=== PATIENT | male | born 1975 | race Caucasian/White ===

== ENCOUNTER 2016-04-08 12:21 | Emergency (ER) | payer OTHER ==
[2016-04-08] MEDS ORDERED: KETOROLAC 60 MG/2 ML VIAL IM STA (12:42)
[2016-04-08] MEDS ORDERED: HYDROmorphone 1 MG/ML 1 ML SYRINGE IM STA (12:42)
--- NOTE | 2016-04-08 12:50 | ED ---
General Adult HPI - General Chief complaint: Extremity Injury, Upper Stated complaint: Shoulder Injury Time Seen by Provider: 04/08/16 12:30 Source: patient, RN notes reviewed Mode of arrival: ambulatory Limitations: no limitations - History of Present Illness Initial comments: This is a 41-year-old male who presents to the emergency department complaining of left shoulder pain. Patient states he fell and injured his left shoulder this morning. Patient denies any numbness weakness. Patient denies any injury to his neck or head. Patient denies any other injury at this time. Patient states he fell with his shoulder extended all and then landed on the shoulder as well. Patient denies any elbow pain or wrist pain. - Related Data Home Medications Medication Instructions Recorded Confirmed Dextroamphetamine/Amphetamine 04/08/16 [Adderall Xr] Morphine Sulfate ER [Ms Contin 30 mg PO Q12HR 04/08/16 04/08/16 30Mg] Morphine Sulfate [Morphine Sulfate 60 mg PO 04/08/16 ER] Allergies Allergy/AdvReac Type Severity Reaction Status Date / Time iodine Allergy Rash/Hives Verified 04/08/16 14:10 Review of Systems ROS Statement: Those systems with pertinent positive or pertinent negative responses have been documented in the HPI. ROS Other: All systems not noted in ROS Statement are negative. Past Medical History Additional Past Medical History / Comment(s): back pain History of Any Multi-Drug Resistant Organisms: None Reported Past Surgical History: Orthopedic Surgery Additional Past Surgical History / Comment(s): right knee, lasik Past Psychological History: No Psychological Hx Reported Smoking Status: Current every day smoker Past Alcohol Use History: None Reported Past Drug Use History: None Reported General Exam - General Exam Comments Initial Comments: GENERAL Patient is well-developed and well-nourished. Patient is in mild distress. EYES Patient's pupils are equal and round. Extraocular motion is intact SKIN Unremarkable NEURO The patient is alert and oriented 3 PYSCH Patient has normal interpersonal interactions. MUSCULOSKELETAL Shoulders tired in the anterior aspect as well as the lateral aspect of the shoulder does not appear to be dislocated there is no tenderness on the clavicle. There is no tenderness on the distal humerus elbow wrist or hand. Limitations: no limitations Course Vital Signs 04/08/16 04/08/16 12:29 13:44 Temperature 98.7 F 99.0 F Pulse Rate 115 H 100 Respiratory 20 20 Rate Blood Pressure 142/88 131/75 O2 Sat by Pulse 99 97 Oximetry Medical Decision Making - Medical Decision Making X-ray showed a fracture of the proximal humerus the greater tuberosity was sheared off. I spoke with Noah waller and he wanted the patient put in a sling and follow-up tomorrow. Disposition Clinical Impression: Fracture, humerus closed Disposition: HOME SELF-CARE Condition: Good Instructions: Proximal Humerus Fracture (ED) Referrals: Kenneth Shukla MD [Primary Care Provider] - 1-2 days Mitchell Theodore DO [Doctor of Osteopathic Medicine] - 1-2 days Time of Disposition: 14:13
--- NOTE | 2016-04-08 13:23 | XR ---
EXAMINATION TYPE: XR shoulder complete LT DATE OF EXAM: 04/08/2016 1:18 PM CLINICAL HISTORY: pain COMPARISON: NONE TECHNIQUE: Three views of the left shoulder are obtained. FINDINGS: Mildly displaced mildly comminuted fracture of the greater humeral tuberosity with mild ext ension to the humeral neck. Displacement estimated at approximately 5 mm. No evidence for dislocation . No additional fracture identified within the [id number]. IMPRESSION: 1. Left humeral fracture as discussed. ICD 10 closed FRACTURE, INITIAL EVALUATION
[2016-04-08 13:46] VITALS: PULSE 100
[2016-04-08 14:29] VITALS: BP 139/88; RESP 18; TEMP 98.7
== END 2016-04-08 14:29 | disposition home or self-care (01) ==
LOC: EC 12:21
DX: S42.202A Unspecified fracture of upper end of left humerus, initial encounter for closed fracture (principal); F17.200 Nicotine dependence, unspecified, uncomplicated; Z79.899 Other long term (current) drug therapy; W11.XXXA Fall on and from ladder, initial encounter
CPT/HCPCS: 73030; 99283; 96372 ×2; J1885; J1170

== ENCOUNTER → 2016-07-25 | Outpatient (CLI) | payer OTHER ==
--- NOTE | 2016-07-25 07:56 | CT ---
EXAMINATION TYPE: CT brain wo con DATE OF EXAM: 07/25/2016 COMPARISON: NONE HISTORY: HUGO CT DLP: 945.5 mGycm Automated exposure control for dose reduction was used. FINDINGS: Central structures are midline. There is no evidence of hydrocephalus. No acute focal lesion, mass ef fect or midline shift is seen. I do not see evidence of intracranial blood. Visualized portions of the paranasal sinuses and mastoids are clear. IMPRESSION: NORMAL CT SCAN OF THE BRAIN.
== END | disposition home or self-care (01) ==
LOC: RADCTMAIN 07:10
PROVIDERS: ATTEND Family Medicine
DX: F44.0 Dissociative amnesia (principal)
CPT/HCPCS: 70450

== ENCOUNTER 2016-07-27 12:07 | Emergency (ER) | payer OTHER ==
[2016-07-27] MEDS ORDERED: SODIUM CHLORIDE 0.9% 1,000 ML IV STA (12:40)
--- NOTE | 2016-07-27 13:01 | ED ---
General Adult HPI - General Chief complaint: Chest Pain Stated complaint: chest pain, diff breathing Time Seen by Provider: 07/27/16 12:20 Source: patient Mode of arrival: wheelchair Limitations: no limitations - History of Present Illness Initial comments: Complaining about the headache, palpitation, dizziness, anxiety, confusion his several doctors Dr. Shukla and now he has been now cutting down on his pain medications over the last couple years according to the patient he was used to be on a heavy-duty fentanyl patches was on morphine long-acting and short- acting now his morphine dose has been reduced significantly. And then he stopped taken his Advil for 4 days he thought that was causing him headache but headache didn't subside. He seen Dr. Shukla for the headache and the same symptoms had a chest to look at the head CT report which is unremarkable - Related Data Home Medications Medication Instructions Recorded Confirmed Albuterol Inhaler [Ventolin Hfa 2 puff INHALATION RT-Q6H PRN 04/08/16 07/27/16 Inhaler] Dextroamphetamine/Amphetamine 20 mg PO DAILY 04/08/16 07/27/16 [Adderall Xr] Melatonin 5 mg PO HS PRN 04/08/16 07/27/16 Morphine Sulfate ER [Ms Contin 30 mg PO BID 04/08/16 07/27/16 30Mg] Allergies Allergy/AdvReac Type Severity Reaction Status Date / Time iodine Allergy Rash/Hives Verified 07/27/16 12:56 Review of Systems ROS Statement: Those systems with pertinent positive or pertinent negative responses have been documented in the HPI. ROS Other: All systems not noted in ROS Statement are negative. Past Medical History Additional Past Medical History / Comment(s): back pain History of Any Multi-Drug Resistant Organisms: None Reported Past Surgical History: Orthopedic Surgery Additional Past Surgical History / Comment(s): right knee, lasik Past Psychological History: No Psychological Hx Reported Smoking Status: Current every day smoker Past Alcohol Use History: None Reported Past Drug Use History: None Reported General Exam - General Exam Comments Initial Comments: General: The patient is awake and alert, in no distress, and does not appear acutely ill. GCS is 15 Skin: Skin is warm and dry and no rashes or lesions are noted. Eye: Pupils are equal, round and reactive to light, extra-ocular movements are intact; there is normal conjunctiva bilaterally. Ears, nose, mouth and throat: There are moist mucous membranes and no oral lesions. Neck: The neck is supple, there is no tenderness Cardiovascular: There is a regular rate and rhythm. No murmur, rub or gallop is appreciated. Respiratory: To auscultation bilateral, no wheezing no rhonchi no distress respiratory herrera noticed Gastrointestinal: Soft, non-distended, non-tender abdomen without masses or organomegaly noted. There is no rebound or guarding present. Bowel sounds are unremarkable. Back: There is no tenderness to palpation in the midline. There is no obvious deformity. Musculoskeletal: Normal ROM, no tenderness, There is no pedal edema. There is no calf tenderness or swelling. No cords were appreciated. Neurological: CN II-XII intact, Cranial nerves III through XII are intact. There are no obvious motor or sensory deficits. Coordination appears grossly intact. Speech is normal. Psychiatric: Cooperative, appropriate mood & affect, normal judgment. Limitations: no limitations Course Vital Signs 07/27/16 07/27/16 12:09 13:09 Temperature 98.5 F Pulse Rate 131 H 99 Respiratory 18 22 Rate Blood Pressure 127/93 128/90 O2 Sat by Pulse 98 99 Oximetry - Reevaluation(s) Reevaluation #1: 07/27/16 15:59 At 1550 feels fine, no chest pain or shortness of breath his GCS is 15 he is not confused his heart rate is normal and he wants to go home EKG Findings - EKG Comments: EKG Findings:: EKG is a sinus tachycardia ventricular rate is 113 RI interval is 136 QRS duration is 82 QT/QTc is 308/422 noticed a T-wave inversion in lead [address] elevation or ST depression noticed in the other leads Medical Decision Making - Lab Data Result diagrams: 07/27/16 12:50 07/27/16 12:50 Lab Results 07/27/16 07/27/16 07/27/16 Range/Units 12:50 12:50 12:50 WBC 10.9 H (3.8-10.6) k/uL RBC 4.87 (4.30-5.90) m/uL Hgb 15.6 (13.0-17.5) gm/dL Hct 46.5 (39.0-53.0) % MCV 95.6 (80.0-100.0) fL MCH 32.1 (25.0-35.0) pg MCHC 33.6 (31.0-37.0) g/dL RDW 12.9 (11.5-15.5) % Plt Count 264 (150-450) k/uL Neutrophils % 69 % Lymphocytes % 22 % Monocytes % 6 % Eosinophils % 0 % Basophils % 0 % Neutrophils # 7.6 (1.3-7.7) k/uL Lymphocytes # 2.4 (1.0-4.8) k/uL Monocytes # 0.7 (0-1.0) k/uL Eosinophils # 0.0 (0-0.7) k/uL Basophils # 0.0 (0-0.2) k/uL PT (9.0-12.0) sec INR (<1.1) APTT (22.0-30.0) sec D-Dimer (<0.60) mg/L FEU Sodium 140 (137-145) mmol/L Potassium 3.6 (3.5-5.1) mmol/L Chloride 108 H (98-107) mmol/L Carbon Dioxide 21 L (22-30) mmol/L Anion Gap 11 mmol/L BUN 8 L (9-20) mg/dL Creatinine 0.82 (0.66-1.25) mg/dL Est GFR (MDRD) Af Amer >60 (>60 ml/min/1.73 sqM) Est GFR (MDRD) Non-Af >60 (>60 ml/min/1.73 sqM) Glucose 111 H (74-99) mg/dL Calcium 9.3 (8.4-10.2) mg/dL Magnesium 2.0 (1.6-2.3) mg/dL Total Bilirubin 0.6 (0.2-1.3) mg/dL AST 24 (17-59) U/L ALT 41 (21-72) U/L Alkaline Phosphatase 98 (38-126) U/L Total Creatine Kinase 196 H (55-170) U/L CK-MB (CK-2) 0.8 (0.0-2.4) ng/mL CK-MB (CK-2) Rel Index 0.4 Troponin I <0.012 (0.000-0.034) ng/mL Total Protein 7.5 (6.3-8.2) g/dL Albumin 4.5 (3.5-5.0) g/dL 07/27/16 Range/Units 12:50 WBC (3.8-10.6) k/uL RBC (4.30-5.90) m/uL Hgb (13.0-17.5) gm/dL Hct (39.0-53.0) % MCV (80.0-100.0) fL MCH (25.0-35.0) pg MCHC (31.0-37.0) g/dL RDW (11.5-15.5) % Plt Count (150-450) k/uL Neutrophils % % Lymphocytes % % Monocytes % % Eosinophils % % Basophils % % Neutrophils # (1.3-7.7) k/uL Lymphocytes # (1.0-4.8) k/uL Monocytes # (0-1.0) k/uL Eosinophils # (0-0.7) k/uL Basophils # (0-0.2) k/uL PT 11.0 (9.0-12.0) sec INR 1.1 (<1.1) APTT 24.4 (22.0-30.0) sec D-Dimer <0.17 (<0.60) mg/L FEU Sodium (137-145) mmol/L Potassium (3.5-5.1) mmol/L Chloride (98-107) mmol/L Carbon Dioxide (22-30) mmol/L Anion Gap mmol/L BUN (9-20) mg/dL Creatinine (0.66-1.25) mg/dL Est GFR (MDRD) Af Amer (>60 ml/min/1.73 sqM) Est GFR (MDRD) Non-Af (>60 ml/min/1.73 sqM) Glucose (74-99) mg/dL Calcium (8.4-10.2) mg/dL Magnesium (1.6-2.3) mg/dL Total Bilirubin (0.2-1.3) mg/dL AST (17-59) U/L ALT (21-72) U/L Alkaline Phosphatase (38-126) U/L Total Creatine Kinase (55-170) U/L CK-MB (CK-2) (0.0-2.4) ng/mL CK-MB (CK-2) Rel Index Troponin I (0.000-0.034) ng/mL Total Protein (6.3-8.2) g/dL Albumin (3.5-5.0) g/dL Disposition Clinical Impression: Headache, Chest pain, Confusion Disposition: HOME SELF-CARE Instructions: Chest Pain (ED) Additional Instructions: He is advised to follow with the Dr. Shukla he probably will benefit from mom some anxiety medication as well as depression medications and he was also advised to continue tapering his pain pain medications as much as he can 1 not to abruptly stop any of those Referrals: Kenneth Shukla MD [Primary Care Provider] - 1-2 days
--- NOTE | 2016-07-27 13:08 | XR ---
EXAMINATION TYPE: XR chest 2V DATE OF EXAM: 07/27/2016 COMPARISON: NONE HISTORY: Weakness TECHNIQUE: Frontal and lateral views of the chest are obtained. FINDINGS: Heart and mediastinum are normal. Lungs are clear. Diaphragm is normal. There are chest le ads. Bony thorax is intact. IMPRESSION: Normal chest
[2016-07-27 13:19] LABS: Basophils % (A) 0 %; CH 32.6; CHCM 34.3; Eosinophils % (A) 0 %; HCT 46.5 % (39.0-53.0); HDW 2.38; HGB 15.6 gm/dL (13.0-17.5); Luc % (Auto) 2; Lymphocytes # (A) 2.4 k/uL (1.0-4.8); Lymphocytes % (A) 22 %; MCH 32.1 pg (25.0-35.0); MCHC 33.6 g/dL (31.0-37.0); MCV 95.6 fL (80.0-100.0); Monocytes # (A) 0.7 k/uL (0-1.0); Monocytes % (A) 6 %; Neutrophils # (A) 7.6 k/uL (1.3-7.7); Neutrophils % (A) 69 %; RBC 4.87 m/uL (4.30-5.90); RDW 12.9 % (11.5-15.5); WBC 10.9 k/uL (3.8-10.6); WBC (Perox) 10.73
[2016-07-27 13:26] LABS: ALT 41 U/L (21-72); AST 24 U/L (17-59); Alkaline Phosphatase 98 U/L (38-126); Anion Gap 11 mmol/L; Blood Urea Nitrogen 8 mg/dL (9-20); Calcium 9.3 mg/dL (8.4-10.2); Carbon Dioxide 21 mmol/L (22-30); Chloride 108 mmol/L (98-107); Glucose 111 mg/dL (74-99); Non-African American GFR(MDRD) >60 (>60 ml/min/1.73 sqM); Potassium 3.6 mmol/L (3.5-5.1); Sodium 140 mmol/L (137-145); Total Bilirubin 0.6 mg/dL (0.2-1.3); Total Protein 7.5 g/dL (6.3-8.2)
[2016-07-27 13:29] LABS: INR 1.1 (<1.1); Partial Thromboplastin Time 24.4 sec (22.0-30.0)
[2016-07-27 13:36] LABS: Creatine Kinase 196 U/L (55-170)
[2016-07-27 13:49] LABS: Creatine Kinase MB 0.8 ng/mL (0.0-2.4); Troponin I <0.012 ng/mL (0.000-0.034)
[2016-07-27 16:11] VITALS: BP 120/89; PULSE 87; RESP 18; TEMP 97.4
== END 2016-07-27 16:18 | disposition home or self-care (01) ==
LOC: EC 12:07
DX: R07.9 Chest pain, unspecified (principal); R51 Headache; R41.0 Disorientation, unspecified; R42 Dizziness and giddiness; R06.00 Dyspnea, unspecified; R00.2 Palpitations; F41.9 Anxiety disorder, unspecified; F17.200 Nicotine dependence, unspecified, uncomplicated; Z79.891 Long term (current) use of opiate analgesic; Z79.899 Other long term (current) drug therapy; Z91.048 Other nonmedicinal substance allergy status
CPT/HCPCS: 36415; 71020; 80053; 82550; 82553; 83735; 84484; 85025; 85379; 85610; 85730; 93005; 96360; 96361; 99285

== ENCOUNTER 2018-10-27 11:19 | Inpatient (IN) | payer MEDICAID, OTHER ==
--- NOTE | 2018-10-27 11:44 | ED ---
Psych HPI - General Chief Complaint: Psychiatric Symptoms Stated Complaint: Mental Health Time Seen by Provider: 10/27/18 11:28 Source: EMS, RN notes reviewed, old records reviewed Mode of arrival: EMS Limitations: altered mental status - History of Present Illness Initial Comments: This is a 43-year-old male the ER for evaluation. Patient resents by EMS and PD for evaluation of psychiatric illness. Per EMS patient was having some erratic driving, patient states he was pulled over under road unsure why. PD EMS to bring him in for psychiatric evaluation, EMS states patient was having some crooked or sideways driving, and has bilateral for 2 days. Patient himself does admit to some history of anxiety and occasionally taking any medications. H istory of back pain takes no medications. Denies any other significant medical history, maybe a history of PTSD psychiatrically. Patient denies homicidal or suicidal thoughts. Patient denies drug or alcohol abuse MD Complaint: altered mental status (acting erratically) -: days(s) Associated Psychiatric Symptoms: depression History of same: Yes Quality: constant Improves With: none Worsens With: none Context: new medication(s) Associated Symptoms: denies other symptoms Treatments Prior to Arrival: placed on mental health hold - Related Data Home Medications Medication Instructions Recorded Confirmed ALPRAZolam [Xanax] 0.5 mg PO TID 10/27/18 10/27/18 QUEtiapine [SEROquel] 25 mg PO HS 10/27/18 10/27/18 oxyCODONE-APAP 5-325MG [Percocet 1 tab PO BID 10/27/18 10/27/18 5-325 mg] Allergies Allergy/AdvReac Type Severity Reaction Status Date / Time iodine Allergy Rash/Hives Verified 10/27/18 11:36 Penicillins Allergy Unknown Verified 10/27/18 11:36 Childhood Review of Systems ROS Statement: Those systems with pertinent positive or pertinent negative responses have been documented in the HPI. ROS Other: All systems not noted in ROS Statement are negative. Past Medical History Additional Past Medical History / Comment(s): back pain History of Any Multi-Drug Resistant Organisms: None Reported Past Surgical History: Orthopedic Surgery Additional Past Surgical History / Comment(s): right knee, lasik Past Psychological History: Anxiety Smoking Status: Former smoker Past Alcohol Use History: None Reported Past Drug Use History: None Reported General Exam Limitations: no limitations General appearance: alert, in no apparent distress, anxious Head exam: Present: atraumatic, normocephalic, normal inspection Eye exam: Present: normal appearance, PERRL, EOMI. Absent: scleral icterus, conjunctival injection, periorbital swelling ENT exam: Present: normal exam, mucous membranes moist Neck exam: Present: normal inspection. Absent: tenderness, meningismus, lymphadenopathy Respiratory exam: Present: normal lung sounds bilaterally. Absent: respiratory distress, wheezes, rales, rhonchi, stridor Cardiovascular Exam: Present: regular rate, normal rhythm, normal heart sounds. Absent: systolic murmur, diastolic murmur, rubs, gallop, clicks GI/Abdominal exam: Present: soft, normal bowel sounds. Absent: distended, tenderness, guarding, rebound, rigid Extremities exam: Present: normal inspection, full ROM, normal capillary refill. Absent: tenderness, pedal edema, joint swelling, calf tenderness Back exam: Present: normal inspection Neurological exam: Present: alert, oriented X3, CN II-XII intact Psychiatric exam: Present: normal affect, normal mood Skin exam: Present: warm, dry, intact, normal color. Absent: rash Course Vital Signs 10/27/18 11:25 Temperature 98.2 F Pulse Rate 84 Respiratory 16 Rate Blood Pressure 145/91 O2 Sat by Pulse 95 Oximetry - Reevaluation(s) Reevaluation #1: 10/27/18 12:01 Patient's medically clear for psychiatric evaluation Medical Decision Making - Medical Decision Making 43-year-old male seen evaluated with psychiatry patient be admitted for psychiatric evaluation and treatment - Lab Data Result diagrams: 10/27/18 12:35 Lab Results 10/27/18 10/27/18 10/27/18 Range/Units 12:35 12:35 12:35 WBC (3.8-10.6) k/uL RBC (4.30-5.90) m/uL Hgb (13.0-17.5) gm/dL Hct (39.0-53.0) % MCV (80.0-100.0) fL MCH (25.0-35.0) pg MCHC (31.0-37.0) g/dL RDW (11.5-15.5) % Plt Count (150-450) k/uL Neutrophils % % Lymphocytes % % Monocytes % % Eosinophils % % Basophils % % Neutrophils # (1.3-7.7) k/uL Lymphocytes # (1.0-4.8) k/uL Monocytes # (0-1.0) k/uL Eosinophils # (0-0.7) k/uL Basophils # (0-0.2) k/uL Phosphorus 3.3 (2.5-4.5) mg/dL Magnesium 2.3 (1.6-2.3) mg/dL Urine Color Yellow Urine Appearance Clear (Clear) Urine pH 5.5 (5.0-8.0) Ur Specific [place] 1.019 (1.001-1.035) Urine Protein Trace H (Negative) Urine Glucose (UA) Negative (Negative) Urine Ketones Negative (Negative) Urine Blood Negative (Negative) Urine Nitrite Negative (Negative) Urine Bilirubin Negative (Negative) Urine Urobilinogen 2.0 (<2.0) mg/dL Ur Leukocyte Esterase Negative (Negative) Salicylates <1.0 mg/dL Urine Opiates Screen Not Detected (NotDetected) Ur Oxycodone Screen Not Detected (NotDetected) Urine Methadone Screen Not Detected (NotDetected) Ur Propoxyphene Screen Not Detected (NotDetected) Acetaminophen <10.0 ug/mL Ur Barbiturates Screen Not Detected (NotDetected) U Tricyclic Antidepress Not Detected (NotDetected) Ur Phencyclidine Scrn Not Detected (NotDetected) Ur Amphetamines Screen Not Detected (NotDetected) U Methamphetamines Scrn Not Detected (NotDetected) U Benzodiazepines Scrn Detected H (NotDetected) Urine Cocaine Screen Not Detected (NotDetected) U Marijuana (THC) Screen Not Detected (NotDetected) Serum Alcohol <10 mg/dL 10/27/18 Range/Units 12:35 WBC 10.5 (3.8-10.6) k/uL RBC 4.85 (4.30-5.90) m/uL Hgb 15.2 (13.0-17.5) gm/dL Hct 45.1 (39.0-53.0) % MCV 92.9 (80.0-100.0) fL MCH 31.4 (25.0-35.0) pg MCHC 33.8 (31.0-37.0) g/dL RDW 12.5 (11.5-15.5) % Plt Count 290 (150-450) k/uL Neutrophils % 76 % Lymphocytes % 16 % Monocytes % 4 % Eosinophils % 1 % Basophils % 1 % Neutrophils # 8.0 H (1.3-7.7) k/uL Lymphocytes # 1.7 (1.0-4.8) k/uL Monocytes # 0.4 (0-1.0) k/uL Eosinophils # 0.1 (0-0.7) k/uL Basophils # 0.1 (0-0.2) k/uL Phosphorus (2.5-4.5) mg/dL Magnesium (1.6-2.3) mg/dL Urine Color Urine Appearance (Clear) Urine pH (5.0-8.0) Ur Specific [place] (1.001-1.035) Urine Protein (Negative) Urine Glucose (UA) (Negative) Urine Ketones (Negative) Urine Blood (Negative) Urine Nitrite (Negative) Urine Bilirubin (Negative) Urine Urobilinogen (<2.0) mg/dL Ur Leukocyte Esterase (Negative) Salicylates mg/dL Urine Opiates Screen (NotDetected) Ur Oxycodone Screen (NotDetected) Urine Methadone Screen (NotDetected) Ur Propoxyphene Screen (NotDetected) Acetaminophen ug/mL Ur Barbiturates Screen (NotDetected) U Tricyclic Antidepress (NotDetected) Ur Phencyclidine Scrn (NotDetected) Ur Amphetamines Screen (NotDetected) U Methamphetamines Scrn (NotDetected) U Benzodiazepines Scrn (NotDetected) Urine Cocaine Screen (NotDetected) U Marijuana (THC) Screen (NotDetected) Serum Alcohol mg/dL Disposition Clinical Impression: Depression, Psychosis, Acute psychosis Disposition: TRANSFER TO PSYCH HOSP/UNIT Condition: Fair Is patient prescribed a controlled substance at d/c from ED?: No Referrals: Kenneth Shukla MD [Primary Care Provider] - 1-2 days
[2018-10-27] MEDS ORDERED: SODIUM CHLORIDE 0.9% 1,000 ML IV STA (11:59)
[2018-10-27 12:43] LABS: Appearance,Urine Clear (Clear); Bilirubin,Urine Negative (Negative); Blood,Urine Negative (Negative); Color,Urine Yellow; Glucose,Urine (UA) Negative (Negative); Ketones,Urine Negative (Negative); Leukocyte Esterase,Urine Negative (Negative); Nitrite,Urine Negative (Negative); PH, Urine 5.5 (5.0-8.0); Protein,Urine Trace (Negative); Specific Gravity,Urine 1.019 (1.001-1.035)
[2018-10-27 12:44] LABS: Basophils # (A) 0.1 k/uL (0-0.2); Basophils % (A) 1 %; Eosinophils # (A) 0.1 k/uL (0-0.7); Eosinophils % (A) 1 %; HCT 45.1 % (39.0-53.0); HGB 15.2 gm/dL (13.0-17.5); Lymphocytes # (A) 1.7 k/uL (1.0-4.8); Lymphocytes % (A) 16 %; MCH 31.4 pg (25.0-35.0); MCHC 33.8 g/dL (31.0-37.0); MCV 92.9 fL (80.0-100.0); Mean Platelet Volume 7.4; Monocytes # (A) 0.4 k/uL (0-1.0); Monocytes % (A) 4 %; Neutrophils % (A) 76 %; Platelet Count 290 k/uL (150-450); RBC 4.85 m/uL (4.30-5.90); RDW 12.5 % (11.5-15.5); WBC 10.5 k/uL (3.8-10.6)
[2018-10-27 12:58] LABS: Amphetamine Screen,Urine Not Detected (NotDetected); Barbiturate Screen,Urine Not Detected (NotDetected); Benzodiazepines Screen,Urine Detected (NotDetected); Cocaine Screen,Urine Not Detected (NotDetected); Methadone Screen, Urine Not Detected (NotDetected); Opiate Screen,Urine Not Detected (NotDetected); Oxycodone Screen, Urine Not Detected (NotDetected); Phencyclidine Screen,Urine Not Detected (NotDetected); Tricyclic Antidepressant,Urine Not Detected (NotDetected); Urn Cannabinoid Scrn Not Detected (NotDetected)
[2018-10-27 13:05] LABS: Acetaminophen <10.0 ug/mL; Alcohol <10 mg/dL; Magnesium 2.3 mg/dL (1.6-2.3); Phosphorus 3.3 mg/dL (2.5-4.5); Salicylate <1.0 mg/dL
[2018-10-27] MEDS ORDERED: ALPRAZolam 0.5 MG TAB PO PRN (17:50)
[2018-10-27] MEDS ORDERED: ALPRAZolam 0.5 MG TAB PO STA (17:52)
[2018-10-27] MEDS ORDERED: MAGNESIUM HYDROXIDE 2,400 MG/10 ML CUP PO PRN (20:10)
[2018-10-27] MEDS ORDERED: MAG HYDROX/AL HYDROX/SIMETH 30 ML CUP PO PRN (20:10)
[2018-10-27] MEDS ORDERED: ZIPRASIDONE 20 MG VIAL IM PRN (20:10)
[2018-10-27] MEDS ORDERED: LORazepam 1 MG TAB PO PRN (20:10)
[2018-10-28 05:33] LABS: ALT 54 U/L (21-72); AST 39 U/L (17-59); African American GFR (CKD) >90 (>60 ml/min/1.73 sqM); Albumin 4.5 g/dL (3.5-5.0); Alkaline Phosphatase 105 U/L (38-126); Anion Gap 12 mmol/L; Blood Urea Nitrogen 10 mg/dL (9-20); Calcium 9.7 mg/dL (8.4-10.2); Carbon Dioxide 24 mmol/L (22-30); Chloride 101 mmol/L (98-107); Cholesterol 151 mg/dL (<200); Glucose 137 mg/dL (74-99); HDL Cholesterol 36 mg/dL (40-60); LDL Cholesterol,Calculated 94 mg/dL (0-99); Potassium 3.4 mmol/L (3.5-5.1); Sodium 137 mmol/L (137-145); Total Bilirubin 0.8 mg/dL (0.2-1.3); Total Protein 7.6 g/dL (6.3-8.2); Triglycerides 104 mg/dL (<150)
[2018-10-28 06:22] VITALS: BMI 30.4
[2018-10-28] MEDS: risperiDONE 0.5 MG TAB PO SCH ×2 (10:14→20:37)
--- NOTE | 2018-10-28 10:14 | P.PN ---
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 HPI: Patient presented to the hospital on petition from a deputy sheriff bailiff who found patient was driving back and forth on the road and did not know where he was and appeared to be confused to the officer. Officer also noted in the petition 9 patient was hearing from a TV show sending a message to drive into a [employer]. Patient was agreeable to come to the hospital for evaluation and was admitted to the mental health unit for acute psychosis. Patient was agreeable to speak with typewriter assembler and was initially calm and cooperative and described what happened yesterday to him. He stated that he was "not feeling right" and states that his biggest symptoms were feeling "jittery and anxious". He claims that he was pulled over by an officer for his "erratic driving" and wanted to come in to the hospital for an evaluation. Patient states that he has been feeling this way for months now and claims that he was on Xanax prescribed several months ago which initially helped him however made him more confused and feeling worse. Patient also states that his family doctor prescribed him Seroquel which she claims made things worse for him. Patient appeared to be responding to internal stimuli and looking out the window at times and giving bizarre facial gestures to typewriter assembler during the interview. Patient looked periodically at typewriter assembler screen and started reading lines from the screen which he did not understand and was attempting to make sense of them. Patient did endorse paranoia stating that "the whole process of me getting up here was not right and I don't agree with that and I don't believe people are here to help me". He claims to have mild depressive symptoms and states that his mood is "the blues" she describes some anxiety over claims it's mild and wants to feel "even keel". He also states that he is analyzing things more and unable to focus. He states that he is sleeping about 3-4 hours a night admits to a decline in his appetite and poor concentration. Patient denies any suicidal or homicidal ideations intent or plan. At this time patient denies any auditory or visual hallucinations. Patient denies any flight of ideas racing thoughts and increased in goal directed behavior. Patient claims that he does not use drugs at this time and claims that he quit cigarettes years ago and does not drink alcohol. He states that he occasionally used cannabis in the past. PAST PSYCHIATRIC HISTORY: Patient denies ever being admitted to a psychiatric hospital however states that he has been on antidepressants in the past including Zoloft and Lexapro along with his Xanax and Seroquel however has not found benefit in these medications and stopped taking them. He states that he has been previously diagnosed with "anxiety". He denies any psychiatric outpatient follow-up and denies any suicide attempts in the past. PMH: Chronic back pain ALLERGIES: Iodine and penicillins CHEMICAL DEPENDENCY HISTORY: Admits to occasional marijuana use denies any other drug use at this time including alcohol and cigarettes. FAMILY PSYCHIATRIC/SUBSTANCE USE HISTORY: Denies SOCIAL HISTORY: Patient claims that he corrupt in [facility] and obtained his GED and did some community college. He states that he worked several odd jobs in the past. Patient currently lives in [place] with his and 1 daughter who is 15 years old. Patient is currently unemployed MENTAL STATUS EXAM: General Appearance: [Patient appears to be stated age is alert, and cooperative however his suspiciousness and bizarre at times.] She does have fair hygiene and grooming. Behavior: [Patient is calmly seated without any agitated behavior.] Speech: Patient's speech is fluent and nonpressured. Some thought blocking. Mood/Affect: Patient reports their mood is "the blues", affect is congruent and constricted. Suicidality/Homicidality: Patient denies having any suicidal or homicidal ideation intent or plan. Perceptions: Patient denies any auditory or visual hallucinations. Patient is responding to internal stimuli. Patient has some thought blocking. Though content/process: There is no evidence of any delusional thought content and thought process is linear and goal-directed. Memory and concentration: AOX3, grossly intact for the purposes of this session. Can spell "WORLD" backwards Judgment and insight: Poor STRENGTHS/WEAKNESSES: Patient claims to have supportive family however has poor coping skills INTELLECT: And average IMPRESSIONS: Psychosis unspecified PLAN: -Patient is admitted under involuntary status to MHU for stabilization of psychiatric symptoms and safety. Patient refused to sign voluntary form and medication consent at this time. We will complete additional certification and will file for court. -Medications : Will start patient on Risperdal 0.5 mg twice a day for psychosis. -Will consider head CT if this proves to be patient's first episode of psychosis. -Haldol and Ativan PRN for agitation/aggression -Patient was informed of the risks, benefits and side effects of the medication and patient declined to take medications at this time. -NRT -none as patient does not smoke -SW on board for discharge planning. We'll also need to get further collateral from family.
[2018-10-28 17:23] LABS: Hemoglobin A1C 5.9 % (4.0-6.0)
--- NOTE | 2018-10-29 08:40 | P.CONS ---
History of Present Illness - Reason for Consult Consult date: 10/28/18 - History of Present Illness This is a consultation note on a 43-year-old white male with history of chronic back pain and opiate dependence. 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 He has struggled with staying employed due to social phobias. We have been slowly tapering his opiates down, but he has been found recently driving in appropriately and is admitted because of psychosis. Interestingly, no opiates were found in his drug screen. We will attempt to wean if weekend. Emotionally he seems somewhat disconnected today. Review of Systems Constitutional: Denies chills, Denies fever Eyes: denies blurred vision, denies pain Ears, nose, mouth and throat: Denies headache, Denies sore throat Cardiovascular: Denies chest pain, Denies shortness of breath Respiratory: Denies cough Gastrointestinal: Denies abdominal pain, Denies diarrhea, Denies nausea, Denies vomiting Musculoskeletal: Denies myalgias Past Medical History Additional Past Medical History / Comment(s): back pain History of Any Multi-Drug Resistant Organisms: None Reported Past Surgical History: Orthopedic Surgery Additional Past Surgical History / Comment(s): right knee, lasik Smoking Status: Current some day smoker Medications and Allergies Home Medications Medication Instructions Recorded Confirmed Type ALPRAZolam [Xanax] 0.5 mg PO TID 10/27/18 10/27/18 History QUEtiapine [SEROquel] 25 mg PO HS 10/27/18 10/27/18 History oxyCODONE-APAP 5-325MG [Percocet 1 tab PO BID 10/27/18 10/27/18 History 5-325 mg] Allergies Allergy/AdvReac Type Severity Reaction Status Date / Time iodine Allergy Rash/Hives Verified 10/27/18 11:36 Penicillins Allergy Unknown Verified 10/27/18 11:36 Childhood Physical Exam Vitals: Vital Signs Temp Pulse Pulse Resp BP BP Pulse Ox 10/28/18 07:02 97.7 F 123 H 18 132/90 10/27/18 20:50 98.5 F 85 18 132/88 10/27/18 20:43 17 10/27/18 19:31 17 10/27/18 18:31 17 10/27/18 15:31 17 10/27/18 14:31 18 10/27/18 11:25 98.2 F 84 16 145/91 95 - Constitutional General appearance: no acute distress - EENT Eyes: no abnormal pupil - Neck Neck: no lymphadenopathy - Respiratory Respiratory: bilateral: CTA - Cardiovascular Rhythm: regular Heart sounds: normal: S1, S2 Abnormal Heart Sounds: no S3 Gallop - Gastrointestinal General gastrointestinal: soft, no tenderness - Integumentary Integumentary: no cellulitis Results CBC & Chem 7: 10/27/18 12:35 10/27/18 12:35 Labs: Abnormal Lab Results - Last 24 Hours (Table) 10/27/18 10/27/18 10/27/18 Range/Units 12:35 12:35 12:35 Neutrophils # 8.0 H (1.3-7.7) k/uL Potassium (3.5-5.1) mmol/L Glucose (74-99) mg/dL HDL Cholesterol (40-60) mg/dL TSH (0.465-4.680) mIU/L Urine Protein Trace H (Negative) U Benzodiazepines Scrn Detected H (NotDetected) 10/27/18 Range/Units 12:35 Neutrophils # (1.3-7.7) k/uL Potassium 3.4 L (3.5-5.1) mmol/L Glucose 137 H (74-99) mg/dL HDL Cholesterol 36 L (40-60) mg/dL TSH 0.318 L (0.465-4.680) mIU/L Urine Protein (Negative) U Benzodiazepines Scrn (NotDetected) Assessment and Plan (1) Chronic back pain Current Visit: Yes Status: Acute Code(s): M54.9 - DORSALGIA, UNSPECIFIED; G89.29 - OTHER CHRONIC PAIN SNOMED Code(s): 191059425 (2) Opiate dependence Current Visit: Yes Status: Acute Code(s): F11.20 - OPIOID DEPENDENCE, UNCOMPLICATED SNOMED Code(s): 73762198 (3) Acute psychosis Current Visit: Yes Status: Acute Code(s): F23 - BRIEF PSYCHOTIC DISORDER SNOMED Code(s): 45022930 (4) Depression Current Visit: Yes Status: Acute Code(s): F32.9 - MAJOR DEPRESSIVE DISORDER, SINGLE EPISODE, UNSPECIFIED SNOMED Code(s): 75006695 Time with Patient: Less than 30
[2018-10-29] MEDS: risperiDONE 0.5 MG TAB PO SCH (09:33)
[2018-10-29] MEDS ORDERED: hydrOXYzine PAMOATE 25 MG CAP PO PRN (11:27)
--- NOTE | 2018-10-29 12:02 | P.PN ---
Progress Note - Text Progress Note Date: 10/29/18 Interval History: Patient was seen in his room and was agreeable to speak to card writer hand in the office. Patient states that he is feeling somewhat better on the medications over claims that he does have some anxiety during the day and felt a little bit "lightheaded" and some fatigue is wall during the day as he was lying down. He claims that he did sleep throughout the night and was happy about that. He claimed that he has not been going to groups and was encouraged to do so. Patient was also spoken to about his deferral meeting with the circus train supervisor which is to take place later on today and patient was agreeable to speak with the circus train supervisor and claims that she is considering not going to court at this time. Patient claims that he has good appetite and showered and has been keeping up with his hygiene. At this time patient denies any suicidal or homical ideations, intent or plan. Patient denies any auditory, visual hallucinations and denies any paranoia or delusions. Patient has been compliant with meds. Patient does not appear to be responding to internal stimuli at this time. Mental Status Exam: General Appearance: Patient appears to be stated age is alert, and cooperative. She does have fair hygiene and grooming. Behavior: Patient is calmly seated without any agitated behavior. Speech: Patient's speech is fluent and nonpressured. Less thought blocking observed. Mood/Affect: Patient reports their mood is "a bit better", affect is congruent and constricted. Suicidality/Homicidality: Patient denies having any suicidal or homicidal ideation intent or plan. Perceptions: Patient denies any auditory or visual hallucinations. Patient is not responding to internal stimuli. Though content/process: There is no evidence of any delusional thought content and thought process is linear and goal-directed. Memory and concentration: AOX3, grossly intact for the purposes of this session. Judgment and insight: Poor, improving mildly Assessment Psychosis unspecified Plan: -Patient continues to meet criteria for inpatient psychiatric admission for symptom stabilization and safety. Patient will have his deferral meeting today with the circus train supervisor. Patient refused to sign for medications. -Medications: We'll switch Risperdal to 1 mg daily at bedtime for psychosis. I added on Vistaril 25 mg every 8 hours when necessary for anxiety. -When necessary Haldol and Ativan for agitation/aggression. -Will consider head CT if this proves to be patient's first episode of psychosis. Social work to plan on obtaining more collateral from on patient's condition and chronicity of his illness and symptoms. -NRT -none as patient does not smoke -SW on board for discharge planning.
[2018-10-29] MEDS: risperiDONE 1 MG TAB PO SCH (21:31)
--- NOTE | 2018-10-30 10:03 | P.PN ---
Progress Note - Text Interval history: The patient is found in his room he follows me to an interview room. He reports his mood is fine. He has been isolating in his room this morning he states he went down for breakfast. He indicates he hasn't showered in the last day and a half or 2 days. He had questions regarding the deferral process and we reviewed that. We discussed his Risperdal. He indicates having some feelings of lightheadedness. He demonstrates no hypotension or bradycardia in fact blood pressure is mildly elevated with some tachycardia. We discussed the reasons he was admitted to the hospital. He is hesitant in describing the symptoms and at one point states "I know there is court involved I don't know if I should even be talking to you" he did indicate that he was receiving messages but was very nonspecific in describing those. Unconvincingly, he tried to state that those were no longer present. Mental status exam: The patient is a male appearing his stated age she is balding his hair shaved quite short he has not shaved. He is dressed in his own clothing. Eye contact is intermittent he frequently looks down into the side during our conversation. He often changes position while seated in the chair. He indicates his mood is fine. Indicates he does not require further hospitalization. He is guarded he tries to under report symptoms of psychosis but they've appear to persist. He demonstrated no verbal or physical aggressiveness. He reports no thoughts of self-harm or harm to others. He is oriented to person place and date. He demonstrates no involuntary repetitive movements. Impression/plan: Psychosis, we will continue the Risperdal 1 mg at bedtime. We discussed that this is a low dose for his presenting symptoms but due to his lightheadedness we decided to give him more time to acclimate to the medicine. We will continue to review his vital signs. We discussed the importance of him attending groups for clinical benefit and also to assist us in evaluating him in determining his length of stay. He is encouraged to fully attend groups we will monitor him for safety.
[2018-10-30] MEDS: risperiDONE 1 MG TAB PO SCH (20:43)
--- NOTE | 2018-10-31 11:13 | P.PN ---
Progress Note - Text Interval history: The patient is found in the hallway he follows me to an interview room. He states that he had a visit from his and child last evening and that went well. He continues to refrain from any group activity. He feels that he would be uncomfortable and it might heighten his anxiety. Appetite stable. He indicates he slept through the night without difficulty. He continues to describe some feeling of lightheadedness and feeling slow since starting the Risperdal. We discussed that this may be a side effect of the medicine that could be temporary as part of an acclimation process. Mental status exam: The patient is alert he stressors unclothing eye contact is appropriate. He is cooperative pleasant. He reports his mood is fine but feels bored here. He is reporting no suicidal or homicidal ideation. He indicates he is experiencing no auditory or hallucinations. He endorses no thoughts of thought insertion or control. He is reporting no ideas of reference. He states he feels safe and does not feel that he is in danger. He is endorsing no other paranoid or persecutory thoughts. He maintains a constricted affect throughout the session. He demonstrates no verbal or physical aggressiveness. He does frequently change position while seated. There is no involuntary repetitive movement observed. Plan: The patient will continue on the current dose of the Risperdal. For symptoms of psychosis this is a lower dose but he is describing feelings of lightheadedness and today states he feels slower in terms of thinking. I will not titrate the dose further today. Vital signs reviewed. Again he is encouraged to attend groups but he is resistant to that suggestion. We will continue to monitor him for safety.
[2018-10-31] MEDS: risperiDONE 1 MG TAB PO SCH (21:14)
[2018-10-31] MEDS: ACETAMINOPHEN TAB 325 MG TAB PO PRN (21:15)
--- NOTE | 2018-11-01 10:19 | P.PN ---
Progress Note - Text Interval history: The patient's found in his room he follows me to an interview room. He indicates his mood is good. He continues to be troubled by the side effect he assumes it is related to the Risperdal. He states he continues feeling disconnected in the morning and lightheaded and this will last through most of the morning. He states he's had this sensation ever since being on the medicine he thinks it might of been less with the 0.5 mg dose. We discussed that that dose is quite small and may not be efficacious enough for his symptoms. We reviewed his presenting symptoms he states that those were misconstrued. He reports having a supportive visit from his and oldest child last evening. He reports he was able to sleep to the night. He continues to not attend groups. Appetite stable. Mental status exam: The patient is alert he is cooperative pleasant. He is dressed in his own clothing. Eye contact is appropriate. Speech is fluent spontaneous nonpressured. He is reporting no suicidal or homicidal ideation intent or plan. He reports no auditory or visual hallucinations. He reports no ideas of reference. He is reporting no delusional thinking at this time. He may be underreporting however. When we reviewed his presenting symptoms of psychosis he provided a different explanation than he did when he presented but is still did not seem to make sense today. He demonstrates no verbal or physical aggressiveness. He demonstrates no involuntary repetitive movements. Insight and judgment limited. Impression/plan: Symptoms of psychosis, the patient states that he finds it difficult tolerating the Risperdal. It is unlikely he is going to continue that medicine with the side effects upon discharge. Reducing the dose to 0.5 mg may likely not be efficacious and he states he still had the side effect with that dose even though it was attenuated. He had been on Seroquel in the past 25 mg at bedtime which caused excessive sedation in the morning. We decided to go ahead and discontinue the Risperdal and initiate Abilify 5 mg daily with the understanding that the dose may need to be titrated further. He states that he still due to have a deferral conference. He is focused on being discharged and we discussed criteria. He strongly encouraged to attend groups but he states that he will not do that. Vital signs not obtained. We will ask for those and monitor the results. We will monitor him for safety. Social work will contact the patient's spouse to gain collateral information regarding their visits over the weekend.
[2018-11-01] MEDS: ARIPiprazole 5 MG TAB PO SCH (11:09)
[2018-11-02] MEDS: ARIPiprazole 5 MG TAB PO SCH (09:22)
--- NOTE | 2018-11-02 14:12 | P.PN ---
Progress Note - Text Progress Note Date: 11/02/18 Interval History: Patient was seen in his room and was agreeable to speak to chief underwriter in the office. Patient states that he is feeling better on the Abilify as compared to the Risperdal. He states that the Abilify is helping him stay calmer and less sedated. Patient continues to have poor insight into his condition and was preoccupied with discharge. Patient was cooperative and directable and appropriate throughout the interview. He states that he was awoken several times by noise in the hallway and did not have the best sleep. He claims his mood is "good". Patient states that he has not been going to groups and was encouraged to do so. Patient also explains that he was having headaches which proceeded the paranoia and his symptoms. Patient claims that he has good appetite and showered and has been keeping up with his hygiene. At this time patient denies any suicidal or homical ideations, intent or plan. Patient denies any auditory, visual hallucinations and denies any paranoia or delusions. Patient has been compliant with meds. Patient does not appear to be responding to internal stimuli at this time. Mental Status Exam: General Appearance: Patient appears to be stated age is alert, and cooperative. She does have fair hygiene and grooming. Behavior: Patient is calmly seated without any agitated behavior. Speech: Patient's speech is fluent and nonpressured. Less thought blocking observed. Mood/Affect: Patient reports their mood is "better", affect is congruent and constricted. Suicidality/Homicidality: Patient denies having any suicidal or homicidal ideation intent or plan. Perceptions: Patient denies any auditory or visual hallucinations. Patient is not responding to internal stimuli. Though content/process: There is no evidence of any delusional thought content and thought process is linear and goal-directed. Memory and concentration: AOX3, grossly intact for the purposes of this session. Judgment and insight: Poor, improving mildly Assessment Psychosis unspecified Plan: -Patient continues to meet criteria for inpatient psychiatric admission for symptom stabilization and safety. Patient will have his deferral meeting today with the operations management trainee. Patient refused to sign for medications. -Medications: We'll continue increasing Abilify to 7 mg for psychosis. Continue with Vistaril 25 mg every 8 hours when necessary for anxiety. -When necessary Haldol and Ativan for agitation/aggression. -Will order head CT given 's history of preceding headaches and onset of paranoia and altered mental status/confusion prior to coming into the hospital. -NRT -none as patient does not smoke -SW on board for discharge planning. Likely discharge home later on this week.
--- NOTE | 2018-11-02 18:35 | CT ---
EXAMINATION TYPE: CT brain wo con DATE OF EXAM: 11/02/2018 COMPARISON: 07/25/2016 HISTORY: 43-year-old male c/o headaches and neck pain TECHNIQUE: Examination was done in axial plane without intravenous contrast. Coronal and sagittal r econstructions performed. CT DLP: 1162.8 mGycm Automated exposure control for dose reduction was used. FINDINGS: There is no evidence of acute intracranial hemorrhage, acute ischemic changes, mass, mass-effect, or extra-axial fluid collection. There is no effacement of cerebral sulci or basal subarachnoid cister ns. There is no hydrocephalus. There is no midline shift. Diaz-white matter distinction is preserv ed. Paranasal sinuses and mastoid air cells are well pneumatized. Orbits and globes are intact. Slight ri ghtward nasal septal deviation. IMPRESSION: No acute intracranial abnormality seen.
[2018-11-02] MEDS: MELATONIN 3 MG TABLET PO SCH (21:24)
[2018-11-03] MEDS: ACETAMINOPHEN TAB 325 MG TAB PO PRN (08:42)
[2018-11-03] MEDS ORDERED: ARIPiprazole 2 MG TAB PO SCH (09:00)
[2018-11-03] MEDS ORDERED: ARIPiprazole 5 MG TAB PO SCH ×2 (09:00)
--- NOTE | 2018-11-03 10:44 | P.PN ---
Progress Note - Text Progress Note Date: 11/03/18 Interval History: Patient was seen in his room and was agreeable to speak to telegraphic typewriter installer in his room. Patient states that he is feeling better on the current medications and feels like he can think clearer. Patient states that he is continuing to have a mild headache however is taking Tylenol for it which is helping. Patient states that he did undergo a CT of his head yesterday and tolerated that well and was curious about the findings. Patient states that he slept well last night with no overnight complaints. Patient claims that he did go to some groups yesterday and was finding them helpful and is helping him improve his insight and coping skills. Patient states that he has been talking to his and will be telling her to come to visit today. Patient was cooperative and directable and appropriate throughout the interview. He claims his mood is "alright". Patient claims that he has good appetite and showered and has been keeping up with his hygiene. At this time patient denies any suicidal or homical ideations, intent or plan. Patient denies any auditory, visual hallucinations and denies any paranoia or delusions. Patient has been compliant with meds. Patient does not appear to be responding to internal stimuli at this time. Mental Status Exam: General Appearance: Patient appears to be stated age is alert, and cooperative. She does have fair hygiene and grooming. Behavior: Patient is calmly seated without any agitated behavior. Speech: Patient's speech is fluent and nonpressured. Mood/Affect: Patient reports their mood is "alright", affect is congruent Suicidality/Homicidality: Patient denies having any suicidal or homicidal ideation intent or plan. Perceptions: Patient denies any auditory or visual hallucinations. Patient is not responding to internal stimuli. Though content/process: There is no evidence of any delusional thought content and thought process is linear and goal-directed. Memory and concentration: AOX3, grossly intact for the purposes of this session. Judgment and insight: Fair, improving mildly Assessment Psychosis unspecified Plan: -Patient continues to meet criteria for inpatient psychiatric admission for symptom stabilization and safety. Patient deferred going to court and is agreeable to treatment. -Medications: We'll continue increasing Abilify to 10 mg for psychosis. Continue with Vistaril 25 mg every 8 hours when necessary for anxiety. -When necessary Haldol and Ativan for agitation/aggression. -Computed tomography scan of patients had found no acute intracranial changes. -NRT -none as patient does not smoke -SW on board for discharge planning. Likely discharge home later on this week. utility worker forge to reach out to tomorrow after visit.
[2018-11-03] MEDS: MELATONIN 3 MG TABLET PO SCH (21:41)
[2018-11-04 07:11] VITALS: BP 147/84; PULSE 104; RESP 20; TEMP 98.2
[2018-11-04] MEDS ORDERED: ARIPiprazole 10 MG TAB PO SCH (09:00)
--- NOTE | 2018-11-04 12:30 | P.DS ---
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 Patient presented to the hospital on petition from a broach grinder who found patient was driving back and forth on the road and did not know where he was and appeared to be confused to the officer. Officer also noted in the petition 9 patient was hearing from a TV show sending a message to drive into a [place]. Patient was agreeable to come to the hospital for evaluation and was admitted to the mental health unit for acute psychosis. Patient was agreeable to speak with commercial lines underwriter and was initially calm and cooperative and described what happened yesterday to him. He stated that he was "not feeling right" and states that his biggest symptoms were feeling "jittery and anxious". He claims that he was pulled over by an officer for his "erratic driving" and wanted to come in to the hospital for an evaluation. Patient states that he has been feeling this way for months now and claims that he was on Xanax prescribed several months ago which initially helped him however made him more confused and feeling worse. Patient also states that his family doctor prescribed him Seroquel which she claims made things worse for him. Patient appeared to be responding to internal stimuli and looking out the window at times and giving bizarre facial gestures to commercial lines underwriter during the interview. Patient looked periodically at commercial lines underwriter screen and started reading lines from the screen which he did not understand and was attempting to make sense of them. Patient did endorse paranoia stating that "the whole process of me getting up here was not right and I don't agree with that and I don't believe people are here to help me". He claims to have mild depressive symptoms and states that his mood is "the blues" she describes some anxiety over claims it's mild and wants to feel "even keel". He also states that he is analyzing things more and unable to focus. He states that he is sleeping about 3-4 hours a night admits to a decline in his appetite and poor concentration. Patient denies any suicidal or homicidal ideations intent or plan. At this time patient denies any auditory or visual hallucinations. Patient denies any flight of ideas racing thoughts and increased in goal directed behavior. Patient claims that he does not use drugs at this time and claims that he quit cigarettes years ago and does not drink alcohol. He states that he occasionally used cannabis in the past. Hospital course: Upon admission to the unit patient was initially bizarre, paranoid and uncooperative. Patient was initially reluctant to sign for voluntary admission however directable and agreeable to commence treatment and deferred going to court. Patient got along well with other patients on the unit and followed unit protocol. Patient was compliant with the medications and denied any side effects throughout hospital course. Patient was initially started on Risperdal 0.5 mg twice a day however patient stated that he did not tolerate the medication well and wanted to be switched off of it. Patient was then started on Abilify and ti trated up to 10 mg daily for psychosis. Patient spoke of his stressors and engaged in therapy both group and individual. Patient was also seen by medical team for history and physical exam. Patient was complaining of ongoing headache prior to coming into the hospital and sustained throughout hospital course. It was believed that patient has a migraine headache and was encouraged to take ibuprofen and Tylenol which did improve his symptoms mildly. Patient also underwent a computed tomography scan of his head which did not show any acute processes. Patient was offered to have the medical doctor come in and evaluate patient and make another recommendation however patient declined and stated that he would like to follow up with his primary care physician regarding this matter. Throughout the course of the hospitalization patient gradually improved with regards to mood, behavior/psychosis and became future oriented with improved insight and judgment. On the day of discharge patient denied any suicidal or homicidal ideations intent or plan denied any auditory or visual hallucinations. Patient endorsed wanting to live for his health and family. The patient denied any access to guns or weapons. Patient denied any paranoia and did not endorse any delusions. Patient does not have a significant history of substance abuse however was counseled on abstaining from all substances incl uding alcohol and marijuana. Patient was also counseled on the medications and need for regular compliance and was encouraged to follow-up with their outpatient appointment for mental health and also for primary care. Prior to discharge a family meeting will be arranged by social services specialist to answer any questions and ensure safety upon discharge. Patient's did visit patient 1 day prior to discharge and as per social work report, she claims that she feels patient is at his baseline and improved with regards to his symptoms. Mental status exam: General Appearance: Patient appears to be stated age is alert, pleasant, and cooperative. Patient is in no acute distress and has fair hygiene and grooming Behavior: Patient is calmly seated without any agitated behavior. Speech: Patient's speech is fluent and nonpressured. Mood/Affect: Patient reports their mood is "better ", affect is congruent and euthymic. Suicidality/Homicidality: Patient denies having any suicidal or homicidal ideat ion intent or plan. Perceptions: Patient denies any auditory or visual hallucinations. Though content/process: There is no evidence of any delusional thought content and thought process is linear and goal-directed. Memory and concentration: AOX3, grossly intact for the purposes of this session. Can spell "WORLD" backwards correctly. Judgment and insight: fair, improved Impression: Psychosis unspecified Plan: -Continue with discharge today as patient has improved and stabilized psychiatrically and is not currently an imminent threat to himself and/or others. -Continue medications: Patient to continue on Abilify 10 mg daily for psychosis. Will prescribe Vistaril 50 mg daily at bedtime when necessary for insomnia/anxiety. -Patient was counseled on the need for medication compliance and appropriate follow-up at mental health and also primary care for medical issues. Patient verbalized understanding and agreed. -Social work to arrange for and conduct family meeting to ensure safety upon discharge and answer any questions/concerns. Social work also to arrange for patients follow up appointments at [facility] and with patient's primary care provider within one week to be further evaluated/treated for his headaches. -Patient counseled on abstaining from recreational drugs and marijuana and alcohol. Was informed/educated on the adverse effects on their physical and mental health. -Patient was instructed to return to the hospital or seek immediate medical care if their psychiatric or medical systems do worsen or reoccur. Allergies Allergy/AdvReac Type Severity Reaction Status Date / Time iodine Allergy Rash/Hives Verified 10/29/18 18:52 Penicillins Allergy Unknown Verified 10/29/18 18:52 Childhood Laboratory Results WBC 10.5 k/uL (3.8-10.6) 10/27/18 12:35 RBC 4.85 m/uL (4.30-5.90) 10/27/18 12:35 Hgb 15.2 gm/dL (13.0-17.5) 10/27/18 12:35 Hct 45.1 % (39.0-53.0) 10/27/18 12:35 MCV 92.9 fL (80.0-100.0) 10/27/18 12:35 MCH 31.4 pg (25.0-35.0) 10/27/18 12:35 MCHC 33.8 g/dL (31.0-37.0) 10/27/18 12:35 RDW 12.5 % (11.5-15.5) 10/27/18 12:35 Plt Count 290 k/uL (150-450) 10/27/18 12:35 Neutrophils % 76 % 10/27/18 12:35 Lymphocytes % 16 % 10/27/18 12:35 Monocytes % 4 % 10/27/18 12:35 Eosinophils % 1 % 10/27/18 12:35 Basophils % 1 % 10/27/18 12:35 Neutrophils # 8.0 k/uL (1.3-7.7) H 10/27/18 12:35 Lymphocytes # 1.7 k/uL (1.0-4.8) 10/27/18 12:35 Monocytes # 0.4 k/uL (0-1.0) 10/27/18 12:35 Eosinophils # 0.1 k/uL (0-0.7) 10/27/18 12:35 Basophils # 0.1 k/uL (0-0.2) 10/27/18 12:35 Sodium 137 mmol/L (137-145) 10/27/18 12:35 Potassium 3.4 mmol/L (3.5-5.1) L 10/27/18 12:35 Chloride 101 mmol/L (98-107) 10/27/18 12:35 Carbon Dioxide 24 mmol/L (22-30) 10/27/18 12:35 Anion Gap 12 mmol/L 10/27/18 12:35 BUN 10 mg/dL (9-20) 10/27/18 12:35 Creatinine 0.97 mg/dL (0.66-1.25) 10/27/18 12:35 Est GFR (CKD-EPI)AfAm >90 (>60 ml/min/1.73 sqM) 10/27/18 12:35 Est GFR (CKD-EPI)NonAf >90 (>60 ml/min/1.73 sqM) 10/27/18 12:35 Glucose 137 mg/dL (74-99) H 10/27/18 12:[address] Glu mg/dL 123 10/27/18 12:35 Hemoglobin A1c 5.9 % (4.0-6.0) 10/27/18 12:35 Calcium 9.7 mg/dL (8.4-10.2) 10/27/18 12:35 Phosphorus 3.3 mg/dL (2.5-4.5) 10/27/18 12:35 Magnesium 2.3 mg/dL (1.6-2.3) 10/27/18 12:35 Total Bilirubin 0.8 mg/dL (0.2-1.3) 10/27/18 12:35 AST 39 U/L (17-59) 10/27/18 12:35 ALT 54 U/L (21-72) 10/27/18 12:35 Alkaline Phosphatase 105 U/L (38-126) 10/27/18 12:35 Total Protein 7.6 g/dL (6.3-8.2) 10/27/18 12:35 Albumin 4.5 g/dL (3.5-5.0) 10/27/18 12:35 Triglycerides 104 mg/dL (<150) 10/27/18 12:35 Cholesterol 151 mg/dL (<200) 10/27/18 12:35 LDL Cholesterol, Calc 94 mg/dL (0-99) 10/27/18 12:35 HDL Cholesterol 36 mg/dL (40-60) L 10/27/18 12:35 Vitamin B12 865.0 pg/mL (200.0-944.0) 10/27/18 12:35 TSH 0.318 mIU/L (0.465-4.680) L 10/27/18 12:35 Urine Color Yellow 10/27/18 12:35 Urine Appearance Clear (Clear) 10/27/18 12:35 Urine pH 5.5 (5.0-8.0) 10/27/18 12:35 Ur Specific [place] 1.019 (1.001-1.035) 10/27/18 12:35 Urine Protein Trace (Negative) H 10/27/18 12:35 Urine Glucose (UA) Negative (Negative) 10/27/18 12:35 Urine Ketones Negative (Negative) 10/27/18 12:35 Urine Blood Negative (Negative) 10/27/18 12:35 Urine Nitrite Negative (Negative) 10/27/18 12:35 Urine Bilirubin Negative (Negative) 10/27/18 12:35 Urine Urobilinogen 2.0 mg/dL (<2.0) 10/27/18 12:35 Ur Leukocyte Esterase Negative (Negative) 10/27/18 12:35 Salicylates <1.0 mg/dL 10/27/18 12:35 Urine Opiates Screen Not Detected (NotDetected) 10/27/18 12:35 Ur Oxycodone Screen Not Detected (NotDetected) 10/27/18 12:35 Urine Methadone Screen Not Detected (NotDetected) 10/27/18 12:35 Ur Propoxyphene Screen Not Detected (NotDetected) 10/27/18 12:35 Acetaminophen <10.0 ug/mL 10/27/18 12:35 Ur Barbiturates Screen Not Detected (NotDetected) 10/27/18 12:35 U Tricyclic Antidepress Not Detected (NotDetected) 10/27/18 12:35 Ur Phencyclidine Scrn Not Detected (NotDetected) 10/27/18 12:35 Ur Amphetamines Screen Not Detected (NotDetected) 10/27/18 12:35 U Methamphetamines Scrn Not Detected (NotDetected) 10/27/18 12:35 U Benzodiazepines Scrn Detected (NotDetected) H 10/27/18 12:35 Urine Cocaine Screen Not Detected (NotDetected) 10/27/18 12:35 U Marijuana (THC) Screen Not Detected (NotDetected) 10/27/18 12:35 Serum Alcohol <10 mg/dL 10/27/18 12:35 Treponema pallidum Ab Non-Reactive (Non-Reactive) 10/27/18 12:35 Vital Signs Temp 98.2 F 11/04/18 07:10 Pulse 104 H 11/04/18 07:10 Resp 20 11/04/18 07:10 BP 147/84 11/04/18 07:10 Pulse Ox 98 10/29/18 17:16 Patient Condition at Discharge: Stable Plan - Discharge Summary Discharge Rx Participant: No New Discharge Prescriptions: New ARIPiprazole [Abilify] 10 mg PO DAILY #28 tab Ibuprofen 600 mg PO Q8HR PRN #30 tablet PRN Reason: Headache Melatonin 3 mg PO HS #28 tablet Acetaminophen Tab [Tylenol] 650 mg PO Q6HR PRN #30 tab PRN Reason: Pain/Discomfort hydrOXYzine PAMOATE [Vistaril] 50 mg PO HS PRN #30 capsule PRN Reason: Insomnia Discontinued oxyCODONE-APAP 5-325MG [Percocet 5-325 mg] 1 tab PO BID QUEtiapine [SEROquel] 25 mg PO HS ALPRAZolam [Xanax] 0.5 mg PO TID Discharge Medication List ARIPiprazole [Abilify] 10 mg PO DAILY #28 tab 11/04/18 [Rx] Acetaminophen Tab [Tylenol] 650 mg PO Q6HR PRN #30 tab 11/04/18 [Rx] Ibuprofen 600 mg PO Q8HR PRN #30 tablet 11/04/18 [Rx] Melatonin 3 mg PO HS #28 tablet 11/04/18 [Rx] hydrOXYzine PAMOATE [Vistaril] 50 mg PO HS PRN #30 capsule 11/04/18 [Rx] Follow up Appointment(s)/Referral(s): [facility] - 1 Week ([place]) Kenneth Shukla MD [Primary Care Provider] - 1-2 days Discharge Disposition: HOME SELF-CARE
== END 2018-11-04 15:53 | disposition home or self-care (01) | DRG 885 ==
LOC: EC 11:19 → 3MHU 19:55
PROVIDERS: ADMIT Psychiatry & Neurology Psychiatry; ATTEND Psychiatry & Neurology Psychiatry
DX: F23 Brief psychotic disorder (principal); F11.20 Opioid dependence, uncomplicated; F17.200 Nicotine dependence, unspecified, uncomplicated; F32.9 Major depressive disorder, single episode, unspecified; F40.10 Social phobia, unspecified; F43.10 Post-traumatic stress disorder, unspecified; G43.909 Migraine, unspecified, not intractable, without status migrainosus; G47.00 Insomnia, unspecified; G89.29 Other chronic pain; Z79.899 Other long term (current) drug therapy; Z88.3 Allergy status to other anti-infective agents; Z88.0 Allergy status to penicillin
CPT/HCPCS: 36415; 70450; 80053; 80061; 80306; 80320; 80329; 81003; 82075; 82607; 83036; 83520; 83735; 84100; 84443; 85025; 86780; 99285